=== PATIENT | male | born 1980 | race African-American/Black ===

== ENCOUNTER 2022-04-05 11:38 | Emergency (ER) | payer BC, OTHER | END 2022-04-05 13:18 | disposition home or self-care (01) | LOC: BURERS 11:38 | DX: G44.209 Tension-type headache, unspecified, not intractable (principal); H61.23 Impacted cerumen, bilateral | CPT/HCPCS: 99283 ==

== ENCOUNTER 2025-06-27 22:06 | Emergency (ER) | payer OTHER ==
[2025-06-27 23:04] LABS: #Basophils 0.1 thou/uL (0.0-0.2); #Eosinophils 0.2 thou/uL (0.0-0.7); #Lymphocytes 1.3 thou/uL (1.20-3.40); #Monocytes 0.4 thou/uL (0.11-0.59); #Neutrophils 2.5 thou/uL (1.40-6.50); %Basophils 1.9 % (0.0-1.0); %Eosinophils 4.1 % (0.0-10.0); %Lymphocytes 28.4 % (21.0-51.0); %Monocytes 9.6 % (0.0-10.0); %Neutrophils 56.0 % (42.0-75.0); Hematocrit 37.9 % (42.0-52.0); Hemoglobin 12.4 g/dL (14.0-18.0); Mean Corpuscular Hemoglobin 27.7 pg (27.0-31.0); Mean Corpuscular Volume 85.2 fl (78.0-98.0); Platelet Count 251 10x3/uL (130-400); Red Blood Cell (RBC) Count 4.46 mill/uL (4.70-6.10); White Blood Cell (WBC) Count 4.5 10x3/uL (4.8-10.8)
[2025-06-27] MEDS ORDERED: Ketorolac Tromethamine 30 MG (1 mL) VIAL ONE (23:11)
[2025-06-27] MEDS ORDERED: Prochlorperazine 10 MG/2 ML VIAL ONE (23:11)
[2025-06-27 23:18] LABS: ALT (SGPT) 17 U/L (Less than 45); AST (SGOT) 21 U/L (11-34); Albumin 4.2 g/dL (3.1-4.5); Alkaline Phosphatase 57 U/L (40-110); Anion Gap 15 mmol/L (10-20); BUN (Urea Nitrogen) 12 mg/dL (8.9-20.6); Bilirubin, Total 0.5 mg/dL (0.3-1.2); Calc. Creatinine Clearance 0 mL/min (70-130); Calcium 8.9 mg/dL (7.8-10.44); Carbon Dioxide 25 mmol/L (22-29); Chloride 104 mmol/L (98-107); Globulin 2.9 g/dL (2.4-3.5); Glucose 102 mg/dL (70-105); Magnesium 2.2 mg/dL (1.6-2.6); Potassium 3.8 mmol/L (3.5-5.1); Sodium 140 mmol/L (136-145)
== END 2025-06-28 00:12 | disposition home or self-care (01) ==
LOC: BURERS 22:06
DX: R51.9 Headache, unspecified (principal)
CPT/HCPCS: 80053; 83735; 85025; 96374; 96375; J0780; J1100; J1885